=== PATIENT | male | born 1980 | race Caucasian/White ===

== ENCOUNTER 2025-04-09 18:37 | Emergency (ER) | payer BC, SELFPAY ==
[2025-04-09 18:42] VITALS: BP 146/91
[2025-04-09 19:09] LABS: Hematocrit 41.2 % (39.0-52.0); Hemoglobin 14.9 g/dL (13.0-18.0); Mean Corp Hgb Conc. 36.2 g/dL (33.0-37.0); Mean Corpuscular Volume 83.9 fL (80.0-94.0); Nucleated Red Blood Cells % 0 % (-); Platelet Count 209 10^3/uL (130-400); Red Cell Dist. Width 12.6 % (11.5-14.5)
[2025-04-09 19:13] LABS: Urine Character Clear (Clear)
[2025-04-09 19:30] LABS: ALT (SGPT) 57 U/L (0-50); AST (SGOT) 41 U/L (17-59); Albumin 4.6 g/dl (3.5-5.0); Alkaline Phosphatase 73 U/L (38-126); Blood Urea Nitrogen 14 mg/dl (9-20); Calcium 9.7 mg/dl (8.4-10.2); Carbon Dioxide 25 mmol/L (22-30); Chloride 106 mmol/L (98-107); Glucose 107 mg/dl (70-99); Potassium 4.1 mmol/L (3.5-5.1); Sodium 138 mmol/L (135-145); Total Protein 7.2 g/dl (6.3-8.2); eGFR > 60.00
--- NOTE | 2025-04-09 19:47 | EDRN ---
Pt with R flank pain started today wrapping around to R abdomen. Nausea and vomiting. Pt unable to find comfortable position. Pt took advil back pain pill couple hours ago that did not help. Pt had similar pain 2 weeks ago that lasted couple
days and went away on its own. No n/v or abd pain at that time. No urinary symptoms. While driving, pt complained of his stomach feeling 'like its on fire.' No fever. Pt has had chills. No cp,sob.
[2025-04-09] MEDS: TORADOL 15 MG IV (20:02)
--- NOTE | 2025-04-09 20:06 | ED.GENMED ---
History of Present Illness
General
Chief Complaint: Flank Pain
Time Seen by Provider: 04/09/25 19:43
History of Present Illness
History of Present Illness:
44-year-old male history of cholecystectomy presenting with right flank pain radiating to his right lower quadrant starting earlier today with associated nausea and vomiting. Patient denies fever, chills, dysuria, hematuria, or diarrhea. Patient
denies history of kidney stones. Patient states that pain feels better with walking around, worse with laying flat. Patient denies any recent heavy lifting or falls.
Phy Exam
Physical Exam
Physical Exam:
General: Alert, acute distress secondary to pain. Patient pacing around room
Head: NCAT
Eyes: clear conjunctiva
Neck: supple
Cardiac: regular rate and rhythm, no murmur
Lungs: clear to auscultation bilaterally. No wheezes, rales, or rhonchi. Speaking full unlabored sentences. No respiratory distress.
Abdomen: soft, nondistended. Right flank and CVA tenderness. Right-sided tenderness. No left-sided tenderness or left CVA tenderness. No rebound or guarding.
MSK: no lower extremity edema bilaterally. No deformity
Skin: warm, dry
Neuro: Alert and oriented x3. no focal deficits
Course
Orders/Labs/Results
Orders:
Orders
04/09/25 18:54
Complete Blood Count/With Diff Urgent
Comprehensive Metabolic Panel Urgent
Urinalysis Reflex To Culture Urgent
Date Specimen was Collected: 04/09/25
Time Specimen was Collected: 18:46
04/09/25 19:55
Ketorolac [Toradol] 15 mg IV NOW STA
04/09/25 19:58
CT Abd/pelvis Wo Iv Cont Urgent
Comment:
Reason For Exam: right cva/flank pain
Abnormal Lab Results
04/09/25
18:54
Absolute Monos (auto) 0.7 H 10^3/uL
(0.1-0.6)
Glucose 107 H mg/dl
(70-99)
ALT 57 H U/L
(0-50)
04/09/25 18:54
04/09/25 18:54
Vital Signs
Initial and Last Documented VS:
Initial Vital Signs
Temp Pulse Resp BP Pulse Ox
98.2 F 71 18 146/91 99
04/09/25 18:42 04/09/25 18:42 04/09/25 18:42 04/09/25 18:42 04/09/25 18:42
Last Documented Vital Signs
Temp Pulse Resp BP Pulse Ox
98.2 F 65 14 135/85 98
04/09/25 18:42 04/09/25 21:02 04/09/25 21:02 04/09/25 21:02 04/09/25 21:02
MDM/Problems Addressed
Differential Diagnosis Includes:
Kidney stone, UTI, musculoskeletal pain
MDM/Problems Addressed:
Labs reviewed. WBC 9.1 with no left shift or bandemia. Electrolytes and creatinine within normal limits. Minimally elevated ALT otherwise AST and alk phos within normal limits. UA negative for UTI or blood. CT abdomen pelvis shows no calculus
or dilatation bilaterally, unremarkable appendix, no obstruction or free air. ? Mesenteric lymphadenitis.
On reevaluation, vitals stable. Discussed results with patient at bedside. Advised to take Tylenol/Motrin, follow up with PCP. Stable for discharge
*Pulse Oximetry
SaO2: 99
Oxygen Mode of Delivery: Room air
Patient hypoxic: no
*Critical Care Note
Total Time (30-74mins, 75-104mins- exclusive of procedures): Not Applicable
ED Attending Note
-
Portions of this chart may have been created with voice recognition software.� Occasional wrong word or��sound alike� substitutions may have occurred due to the inherent limitations of voice recognition software.
Discharge Plan
Departure
Patient Disposition: Home (Routine Discharge)
Date of Disposition: 04/09/25
Time of Disposition: 21:32
Patient with high blood pressure during this ER visit?: Yes
Discharge Problem:
Acute right flank pain
Instructions: Flank Pain (DC), BLOOD PRESSURE
Prescriptions:
New
cyclobenzaprine 5 mg tablet
5 mg PO Q8H PRN (Reason: muscle cramps) Qty: 20 0RF
ondansetron 4 mg tablet,disintegrating
4 mg PO Q8H PRN (Reason: nausea and vomiting) 5 Days Qty: 20 0RF
Referrals:
PRIVATE,PHYSICIAN [Family Provider, Internal Medicine]
Activity Restrictions/Additional Instructions:
Follow-up with primary care doctor next week
Take Tylenol 975 mg every 6 hours and/or ibuprofen 800 mg every 8 hours with food as needed for pain
Take Flexeril every 8 hours as needed for muscle spasm
Use lidocaine patch which you can purchase [id number] at local pharmacy as needed for pain
Return to the emergency department for fever, inability tolerate liquids, numbness, weakness, tingling or new/worse symptoms
Interventions
Interventions:
*Risk Screen - Suicide Last Done: 04/09/25 18:42
*General Assessment Last Done: 04/09/25 18:42
*Neglect/Abuse Screening Last Done: 04/09/25 19:46
*ED COVID-19 Vaccine History Last Done: 04/09/25 18:42
*Nursing Disposition Last Done: 04/09/25 21:57
TX-Whawlt-Tqeilupjxm Assessment Last Done: 04/09/25 19:50
ED-Male Genitourinary Assessment Last Done: 04/09/25 19:50
Discharge Date and Time
Discharge Date/Time: 04/09/25 21:57
Print Language: TURKISH
[2025-04-09 21:02] VITALS: BP 135/85
== END 2025-04-09 21:57 | disposition home or self-care (01) ==
LOC: EMR 18:37
PROVIDERS: Student in an Organized Health Care Education/Training Program; EMERGENCY PHYSICIAN Emergency Medicine
DX: R10.31 Right lower quadrant pain (principal); R03.0 Elevated blood-pressure reading, without diagnosis of hypertension
CPT/HCPCS: 99284; 96374; 74176; 80053; 81003; 85025